=== PATIENT | male | born 1945 | race Caucasian/White ===

== ENCOUNTER → 2019-01-01 | Outpatient (CLI) | payer MEDICARE ==
--- NOTE | 2019-01-01 19:53 | PCVCIMAG ---
EXAM: LEFT LOWER EXTREMITY ARTERIAL DUPLEX INDICATION: Peripheral Arterial Disease. Leg pain. FINDINGS: Left Leg: Satisfactory arterial waveforms throughout the common/profunda/superficial femoral, popliteal, anterior tibial, peroneal, and posterior tibial arteries. No flow limiting stenosis seen. IMPRESSION: No flow limiting stenosis in the left lower extremity. Incidental note is made of a 0.8 x 1.3 x 4.3 cm left popliteal cyst. Please note a bilateral study was ordered but the patient refused imaging of the right leg. LOC:[id number]
== END | disposition home or self-care (01) ==
LOC: PCVCIMAG 11:16
DX: Z01.818 Encounter for other preprocedural examination (principal); M71.22 Synovial cyst of popliteal space [Baker], left knee; I73.9 Peripheral vascular disease, unspecified; I77.1 Stricture of artery
CPT/HCPCS: 93926